=== PATIENT | female | born 1970 | race Hispanic/Latino ===

== ENCOUNTER 2020-07-30 07:30 | Day surgery (SDC) | payer OTHER ==
[2020-07-30] VITALS (17 sets, daily range): BP systolic 106–131; BP diastolic 63–80
[~2020-07-30] VITALS: Ht 167.6 cm; Wt 145.1 kg
[2020-07-30] MEDS ORDERED: IOHEXOL-350 50ML VIAL IV ONE (07:49)
[2020-07-30] MEDS ORDERED: INDOMETHACIN 50 MG SUPP.RECT RC SCH (08:30)
[2020-07-30] MEDS: SODIUM CHLORIDE 0.9% 1000ML 1,000 ML IV ONE (10:05)
[2020-07-30] MEDS ORDERED: MEPERIDINE-PF 25 MG/ML SYG ONE (10:12)
[2020-07-30] MEDS ORDERED: ONDANSETRON HCL 4 MG/2 ML VIAL ONE (10:13)
[2020-07-30] MEDS ORDERED: FENTANYL CITRATE PF 50 MCG/1 ML 2ML VIAL ONE (10:13)
[2020-07-30] MEDS ORDERED: PROPOFOL 10 MG/ML 20ML VIAL IV ONE (10:13)
[2020-07-30] MEDS ORDERED: SUCCINYLCHOLINE CHLORIDE 20 MG/ML 10 ML VIAL ONE (10:13)
[2020-07-30] MEDS ORDERED: MIDAZOLAM HCL 1 MG/ML 2ML VIAL ONE (10:13)
[2020-07-30] MEDS ORDERED: EPHEDRINE SULFATE 50 MG/ML AMPULE ONE (10:56)
--- NOTE | 2020-07-30 12:20 | NUR ---
Pt received Pt received via stretcher from PACU accompanied by [place] Awad. Pt awake and alert, talkative. States feeling bloated but no pain. Cramping subsided. VS wnl.
--- NOTE | 2020-07-30 12:50 | NUR ---
D/C Pt prepared for discharge. Verbal and written instructions given to pt and daughter (over the phone) with f/u appointment date and time. Emphasized to both of them pt needing to be NPO for the next 6hrs as per order. Both verbalized understanding. Pt was then taken to private vehicle via w/c in no distress.
== END 2020-07-30 13:00 ==
LOC: DAH 07:30 → ENDO 07:30
PROVIDERS: ATTEND Internal Medicine
DX: R93.2 Abnormal findings on diagnostic imaging of liver and biliary tract (principal); K80.50 Calculus of bile duct without cholangitis or cholecystitis without obstruction; K80.20 Calculus of gallbladder without cholecystitis without obstruction; K21.9 Gastro-esophageal reflux disease without esophagitis; K57.30 Diverticulosis of large intestine without perforation or abscess without bleeding; E66.01 Morbid (severe) obesity due to excess calories; B96.81 Helicobacter pylori [H. pylori] as the cause of diseases classified elsewhere; Z86.010 Personal history of colon polyps; K59.04 Chronic idiopathic constipation; Z90.49 Acquired absence of other specified parts of digestive tract; Z96.659 Presence of unspecified artificial knee joint; Z79.899 Other long term (current) drug therapy; Z20.828 Contact with and (suspected) exposure to other viral communicable diseases
CPT/HCPCS: 43262; 43264; 43273; 74328; A4215; A4216; A4221; A4222; A4223; A4606; A4657 ×2; A4663; C1769; C1773; C9803; J0330; J2175; J2250; J2405; J2704; J3010; J3490; J7030; Q9967; U0003; 36415; 74330